=== PATIENT | female | born 1955 | race Caucasian/White ===

== ENCOUNTER 2024-03-13 17:59 | Emergency (ER) | payer OTHER, MEDICARE ==
[2024-03-13] MEDS ORDERED: fentaNYL 50 mcg/mL 1 mL Vial ONE (18:47)
== END 2024-03-13 20:20 | disposition home or self-care (01) ==
LOC: BURERS 17:59
DX: S90.02XA Contusion of left ankle, initial encounter (principal); S80.212A Abrasion, left knee, initial encounter; S80.211A Abrasion, right knee, initial encounter; I10 Essential (primary) hypertension; V89.2XXA Person injured in unspecified motor-vehicle accident, traffic, initial encounter
CPT/HCPCS: 96372; G0390; J3010